=== PATIENT | male | born 1945 | race African-American/Black ===

== ENCOUNTER → 2017-01-11 | Outpatient (CLI) | payer MEDICARE, BC ==
[~2017-01-11] MED LIST: ASPIRIN ENTERI325 M1 PO; COREG12.5 MG PO; COUMADIN5 MG PO; DOC-Q-LACE100 MG PO; DOXAZOSIN MESYLA2 MG PO; ENDOCET 5-3251 EACH PO; FOSRENOL750 MG PO; GABAPENTIN300 MG PO; IRON SUCROSE IV; LIPITOR40 MG PO; LOVENOX80 MG/0.8 INJ; NORVASC10 MG PO; PROCRIT3000 UNIT/ SUBQ; RENAPLEX-D PO; SENSIPAR90 MG PO; SODIUM CHLORIDE IV; VITAMIN D32000 UNIT PO; ZESTRIL40 MG PO
[2017-01-11 14:22] LABS: HEMATOCRIT 28.6 % (38.0-50.0); HEMOGLOBIN 9.9 gm/dL (13.0-16.0); MEAN CELL VOLUME 92.9 FL (83-96); MEAN CORPUSCULAR HEMOGLOBIN 32.3 PG (28-34); MEAN CORPUSCULAR HGB CONC 34.8 g/dL (30-36); MEAN PLATELET VOLUME 7.6 FL (6.5-11.5); RED BLOOD COUNT 3.08 X10e (3.90-5.60); RED CELL DISTRIBUTION WIDTH 13.4 % (11.0-15.5)
[2017-01-11 14:40] LABS: INR 2.1; PARTIAL THROMBOPLASTIN TIME 41.6 SECONDS (23.5-31.3); PROTHROMBIN TIME (PATIENT) 22.3 SECONDS (10.0-11.7)
[2017-01-11 15:09] LABS: ALBUMIN SERUM 3.9 g/dL (3.5-5.0); BILIRUBIN,TOTAL 0.4 mg/dL (0.2-2.0); BUN/CREATININE RATIO 6.89; CALCIUM SERUM 9.6 mg/dL (8.4-10.2); CREATININE SERUM 7.4 mg/dL (0.6-1.4); GLOM FILT RATE Estimated 7.8 mL/min (>60); POTASSIUM 4.2 mmol/L (3.5-5.1); PROTEIN TOTAL SERUM 6.9 g/dL (6.0-8.3)
== END | disposition home or self-care (01) ==
LOC: CAMB 12:00
PROVIDERS: Specialist
DX: Z01.818 Encounter for other preprocedural examination (principal)
CPT/HCPCS: 36415; 80053; 85027; 85610; 85730